=== PATIENT | female | born 1995 | race Caucasian/White ===

== ENCOUNTER 2019-12-05 16:50 | Emergency (ER) | payer OTHER, SELFPAY ==
[2019-12-05 17:03] VITALS: BP 98/60; PULSE 120; RESP 20; TEMP 37.2; O2SAT 97
--- NOTE | 2019-12-05 18:04 | ED.URI ---
HPI - URI/Sore Throat General Chief Complaint: Upper Respiratory Infection Stated Complaint: Wheezing/Cough Time Seen by Provider: 12/05/19 18:04 Source: patient and RN notes reviewed Mode of arrival: ambulatory Limitations: no limitations History of Present Illness HPI Narrative: 24 year old female who presents to [facility] care with complaints of post nasal drainage, cough, wheezing with some shortness of breath since Sunday. Patient states that she has been using her brothers nebulizer with Albuterol but she continues to have the cough and wheezing with shortness of breath with exertion. Patient denies any fevers, chills, or sweats, denies any chest pain. pressure or any palpitations. Patient has noted scattered wheezing noted on auscultation with no tachypnea or accessory muscle use noted, SAO2 97% on room air.Patient admits to daily tobacco use of 1/2ppd of cigarettes. MD elicited complaint: cough, rhinorrhea, nasal congestion and other (shortness of breath) Pertinent past history: other (tobacco use) Onset (ago): day(s) (2) Consistency: intermittent Severity: moderate Able to tolerate fluids by mouth: Yes Exacerbating factors: exertion and deep breaths Relieving factors: other (nebulizer treatments have helped) Associated symptoms: rhinorrhea, nasal congestion, cough, shortness of breath and other (wheezing) Treatments prior to arrival: other (nebulizer) Related Data Home Medications Medication Instructions Recorded Confirmed citalopram 20 mg PO DAILY 12/05/19 12/05/19 Allergies Allergy/AdvReac Type Severity Reaction Status Date / Time cat dander Allergy Intermediate Dyspnea / Verified 12/05/19 17:37 SOB Review of Systems Review of Systems: Narrative: CONSTITUTIONAL: Denies fever, chills, or sweats. EYES: Denies visual changes, redness, or discharge. ENT:Positive for rhinorrhea, congestion,mild sore throat, no otalgia. CARDIOVASCULAR: Denies chest pain, palpitations, or edema. RESPIRATORY: Positive cough or dyspnea. GASTROINTESTINAL: Denies abdominal pain, nausea, vomiting, or diarrhea. GENITOURINARY: Denies dysuria or hematuria. SKIN: Denies rash or itching. MUSCULOSKELETAL: Denies back pain, joint pain, or myalgia. NEUROLOGIC: Denies headache, numbness, or weakness. PSYCHIATRIC:Positive anxiety or depression. All systems reviewed & are unremarkable except as noted in HPI and below PMFSH Past Medical History Medical History (Updated 12/06/19 @ 20:21 by Elizabeth Rainey NP) Anxiety and depression Infection in bloodstream UTI (urinary tract infection) Surgical History Surgical History (Updated 12/06/19 @ 20:24 by Elizabeth Rainey NP) History of plastic surgery Previous section Family History Family History (Updated 12/06/19 @ 20:23 by Elizabeth Rainey NP) Other Asthma Diabetes mellitus Social History Social History (Updated 12/06/19 @ 20:23 by Elizabeth Rainey NP) Smoking packs per day: 0.5 Smoking cigarettes per day: 10.0 Years smoked: 5 Smoking pack-years: 2.50 Smoking status: Current every day smoker Tobacco type: cigarettes Alcohol intake: never Living arrangements: with family Gender identity (if verbalized by the patient): Female Comments At time of signature, agree with nursing past medical, surgical, social history. There is no relevant family history pertinent to the presenting complaint Exam Narrative: Exam Narrative: GENERAL: Well-appearing, well-nourished, and in no acute distress. HEAD: Normocephalic, atraumatic. EYES: PERRLA and EOMI. ENT: Nares red, white rhinorrhea no epistaxis. Mucous membranes moist.TM;s normal with good light reflex, throat red with no tonsil swelling or lesions. NECK: Supple.no lymphadenopathy CHEST: Scattered wheezes noted auscultation. No respiratory distress.SAO2 97% HEART: Regular rate and rhythm. No murmur heard. Normal peripheral pulses. ABDOMEN: Soft, nontender, nondistended, normal active bowel sounds.
== END 2019-12-05 18:35 | disposition home or self-care (01) ==
PROVIDERS: Emergency Provider Registered Nurse
DX: J32.9 Chronic sinusitis, unspecified (principal); J40 Bronchitis, not specified as acute or chronic; F17.210 Nicotine dependence, cigarettes, uncomplicated; F41.9 Anxiety disorder, unspecified; F32.9 Major depressive disorder, single episode, unspecified
CPT/HCPCS: 87081; 87804; 87880; 99213; G0463

== ENCOUNTER 2020-03-10 18:17 | Emergency (ER) | payer OTHER, SELFPAY ==
[2020-03-10 18:23] VITALS: BP 152/62; PULSE 108; RESP 20; TEMP 36.8; O2SAT 100
--- NOTE | 2020-03-10 18:35 | ED.GENADULT ---
HPI - General Adult General Chief complaint: Extremity Injury, Lower Stated complaint: right foot pain Time Seen by Provider: 03/10/20 18:35 Source: patient and RN notes reviewed Limitations: no limitations History of Present Illness HPI narrative: 24-year-old female presents today with complaints of right arch and dorsal-lateral foot pain and swelling for 14 days. No treatment. Martina says she can not recall any injuries but believes she could have been wearing the wrong shoes for months. Hurts to bear weight at times. No radiation of pain. No numbness, tingling, or loss of mobility. Exacerbating factor applying weight. Denies inability to bear weight. Denies discoloration. Denies suspect foreign body. LMP-4 weeks ago, denies being . Remains active. The patient reports she have not been diagnosed with COVID-19. The patient reports she is not waiting for the results of a COVID-19 lab test. The patient reports she do not have fever, chills, weakness, fatigue, or myalgia. The patient reports she do not have a new or worsening cough or shortness of breath. Denies chest pain. The patient reports she do not have any rhinorrhea, congestion, sore throat, nausea, vomiting, abdominal pain, and diarrhea. Tolerating po intake well. Denies recent traveling. Denies concerns for COVID-19 or exposures been home with limited outdoor exposure except for essential household needs, work, and return home. At this time, patient is not suspected of having COVID-19. Some parts of this dictation were generated by voice recognition software and may contain typographical and/or grammatical inaccuracies. Related Data Home Medications Medication Instructions Recorded Confirmed No Home Medications 03/10/20 03/10/20 Allergies Allergy/AdvReac Type Severity Reaction Status Date / Time cat dander Allergy Intermediate Dyspnea / Verified 03/10/20 18:32 SOB Review of Systems Review of Systems: Narrative: CONSTITUTIONAL: Denies fever, chills, sweats. EYES: Denies visual changes, redness, discharge. ENT: Denies rhinorrhea, congestion, sore throat, otalgia. CARDIOVASCULAR: Denies chest pain, palpitations, edema. RESPIRATORY: Denies dyspnea, wheezing, cough. GASTROINTESTINAL: Denies abdominal pain, nausea, vomiting, diarrhea. GENITOURINARY: Denies dysuria, hematuria, abnormal discharge. SKIN: Denies rash or itching. MUSCULOSKELETAL: Denies acute back pain or myalgia. Complains of right arch and dorsal-lateral foot pain and swelling. NEUROLOGIC: Denies numbness or focal weakness. PSYCHIATRIC: Denies anxiety or depression. All other systems reviewed are negative, except as documented in HPI and below. [facility] Past Medical History Medical History (Updated 03/10/20 @ 19:13 by CAMERON Guzman) Anxiety and depression Infection in bloodstream UTI (urinary tract infection) Surgical History Surgical History (Updated 03/10/20 @ 19:13 by CAMERON Guzman) History of cosmetic plastic surgery facial due to dog bit History of plastic surgery Previous section Family History Family History Other Asthma Diabetes mellitus Social History Social History (Updated 03/10/20 @ 19:14 by CAMERON Guzman) Smoking packs per day: 0.5 Smoking cigarettes per day: 10.0 Years smoked: 5 Smoking pack-years: 2.50 Smoking status: Current every day smoker Tobacco type: cigarettes Alcohol intake: current Alcohol use details: occasional Substance use: never Living arrangements: with family Occupation/Education: occupation Gender identity (if verbalized by the patient): Female Comments At time of signature, agree with nurse past medical, surgical, social, and family history. There is no relevant family history pertinent to the presenting complaint. Exam Narrative: Exam Narrative: GENERAL: This is a well-nourished, well-dev
== END 2020-03-10 18:58 | disposition home or self-care (01) ==
PROVIDERS: Emergency Provider Nurse Practitioner Family; PCP Internal Medicine
DX: M76.71 Peroneal tendinitis, right leg (principal); F17.210 Nicotine dependence, cigarettes, uncomplicated; Z87.440 Personal history of urinary (tract) infections; R03.0 Elevated blood-pressure reading, without diagnosis of hypertension
CPT/HCPCS: 99211; G0463

== ENCOUNTER 2020-03-18 16:49 | Emergency (ER) | payer OTHER, SELFPAY ==
[2020-03-18 16:59] VITALS: BP 117/61; PULSE 102; RESP 20; TEMP 36.9; O2SAT 100
--- NOTE | 2020-03-18 17:26 | ED.EAR ---
HPI - Ear Problem General Chief complaint: Ear Stated complaint: Ear pain Time Seen by Provider: 03/18/20 17:26 Source: patient Mode of arrival: ambulatory Limitations: no limitations History of Present Illness HPI Narrative: Martina Shin is a 24 yo female with no PMH who came to express care with right ear pain after swimming and full trip over the last weekend. Feels like water still in ear; painful outside, tender to touch Related Data Allergies Allergy/AdvReac Type Severity Reaction Status Date / Time cat dander Allergy Intermediate Dyspnea / Verified 03/18/20 17:15 SOB Review of Systems Review of Systems: Narrative: CONSTITUTIONAL: Denies fever, chills, sweats. EYES: Denies visual changes, redness, discharge. ENT: Denies rhinorrhea, congestion, sore throat, has R otalgia. CARDIOVASCULAR: Denies chest pain, palpitations, edema. RESPIRATORY: Denies dyspnea, wheezing, cough GASTROINTESTINAL: Denies abdominal pain, nausea, vomiting, diarrhea. GENITOURINARY: Denies dysuria, hematuria, abnormal discharge SKIN: Denies rash or itching. NEUROLOGIC: Denies numbness, or focal weakness. PSYCHIATRIC: Denies anxiety or depression. PMFSH Past Medical History Medical History Anxiety and depression Infection in bloodstream UTI (urinary tract infection) Surgical History Surgical History History of cosmetic plastic surgery facial due to dog bit History of plastic surgery Previous section Family History Family History Other Asthma Diabetes mellitus Social History Social History Smoking packs per day: 0.5 Smoking cigarettes per day: 10.0 Years smoked: 5 Smoking pack-years: 2.50 Smoking status: Current every day smoker Tobacco type: cigarettes Alcohol intake: current Substance use: never Gender identity (if verbalized by the patient): Female Comments At time of signature, I agree with nursing past medical, surgical, social and family history. There is no relevant family history pertinent to the presenting complaint. Exam Narrative: Exam Narrative: GENERAL: This is a well-nourished, well-developed patient, in mild distress. HEAD: normocephalic, atraumatic. EYES: Sclera clear/white. Vision is grossly intact. EARS: External ears normal, auditory canals clear on L , erythema and swelling of R canal without drainage, TMs normal without perforation. Hearing grossly intact. NOSE: External nose normal without nasal discharge, nares without redness, no rhinorrhea. THROAT: Mucous membranes moist, NECK: Neck supple, CARDIOVASCULAR: Regular rate and rhythm without murmurs, gallops, or rubs. RESPIRATORY: Clear to auscultation. Breath sounds equal bilaterally. No wheezes, rales, or rhonchi. GASTROINTESTINAL: Abdomen soft, , SKIN: warm, intact with no suspicious lesions or rash, good texture and turgor. NEURO: awake, alert, and oriented to person, place and time. There were no obvious focal neurologic abnormalities. Steady gait EXTREMITIES: Normal range of motion. BACK: Nontender without deformity Course Course Emergency Course: started on ear drops- discussed use of ear drops, stop use of swimmers ear Vital Signs Vital signs: Vital Signs Temperature 98.4 F 03/18/20 16:59 Pulse Rate 102 H 03/18/20 16:59 Respiratory Rate 03/18/20 16:59 Blood Pressure 117/61 03/18/20 16:59 Pulse Oximetry 100 03/18/20 16:59 Temperature 98.4 F 03/18/20 16:59 Pulse Rate 102 H 03/18/20 16:59 Respiratory Rate 03/18/20 16:59 Blood Pressure 117/61 03/18/20 16:59 Pulse Oximetry 100 03/18/20 16:59 Medical Decision Making Differential Diagnosis Differential Diagnosis: Otitis media versus otitis externa versus ear injury Vital Signs Vital Signs:
== END 2020-03-18 17:38 | disposition home or self-care (01) ==
PROVIDERS: Emergency Provider Nurse Practitioner
DX: H60.311 Diffuse otitis externa, right ear (principal); F17.210 Nicotine dependence, cigarettes, uncomplicated
CPT/HCPCS: 99213; G0463

== ENCOUNTER 2022-06-27 13:18 | Emergency (ER) | payer OTHER, SELFPAY ==
[2022-06-27 13:22] VITALS: BP 123/70; PULSE 93; RESP 20; TEMP 36.9; O2SAT 98
--- NOTE | 2022-06-27 13:37 | ED.FEMALEGU ---
HPI - Female Genitourinary General Chief complaint: Urogenital-Female Stated complaint: uti Time Seen by Provider: 06/27/22 13:35 Source: patient and RN notes reviewed Mode of arrival: ambulatory Limitations: no limitations History of Present Illness HPI Narrative: 26-year-old female presents with concern for low back pain, foul-smelling and dark-colored urine. She reports symptoms started 1 week ago. She reports she gets urinary tract infection if she drinks soda. She denies body aches, chills, sweats, fever, dysuria, frequency, urgency. She denies abdominal pain, nausea, vomiting MD elicited complaint: UTI Related Data Home Medications Medication Instructions Recorded Confirmed ibuprofen 600 mg tablet 600 mg PO DAILY 06/27/22 06/27/22 phentermine 37.5 mg tablet 37.5 mg PO DAILY 06/27/22 06/27/22 Allergies Allergy/AdvReac Type Severity Reaction Status Date / Time cat dander Allergy Intermediate Dyspnea / Verified 06/27/22 13:35 SOB Review of Systems Review of Systems: CONSTITUTIONAL: Denies malaise, chills, sweats, or fever. CARDIOVASCULAR: Denies chest pain, palpitations, or edema. RESPIRATORY: Denies cough or dyspnea. GASTROINTESTINAL: Denies abdominal pain, nausea, vomiting, diarrhea GENITOURINARY: Reports dysuria, frequency, urgency, suprapubic pressure. Denies flank pain or hematuria. SKIN: Denies rash or itching. MUSCULOSKELETAL: Denies back pain or myalgia. All systems reviewed & are unremarkable except as noted in HPI and below PMFSH Past Medical History Medical History (Updated 06/27/22 @ 13:43 by Theresa Bush NP) Anxiety and depression Infection in bloodstream UTI (urinary tract infection) Surgical History Surgical History History of cosmetic plastic surgery facial due to dog bit History of plastic surgery Previous section Family History Family History Other Asthma Diabetes mellitus Social History Social History Smoking packs per day: 0.5 Smoking cigarettes per day: 10.0 Years smoked: 5 Smoking pack-years: 2.50 Smoking status: Current every day smoker Tobacco type: cigarettes Alcohol intake: current Alcohol use details: occasional Substance use: never Gender identity (if verbalized by the patient): Female Comments At time of signature, agree with nursing past medical, surgical, social and family history. There is no relevant family history pertinent to the presenting complaint Exam Narrative: GENERAL: Well-appearing, well-nourished, and in no acute distress. HEAD: Normocephalic. EYES: PERRLA, conjunctivae clear. NECK: Supple. No lymphadenopathy CHEST: Clear to auscultation. No respiratory distress. HEART: Regular rate and rhythm. ABDOMEN: Soft, nontender upon palpation, nondistended, normal active bowel sounds, no palpable or pulsatile masses, no guarding. Mild left CVA tenderness SKIN: Warm, dry, no rash. NEURO: Alert and oriented x3. PSYCH: Normal mood and affect Course Course Emergency Course: Patient is aware of diagnosis, understands and agrees to treatment plan. Anticipatory guidance given. Patient agrees to follow-up as directed and is aware of reasons to seek care at the emergency department. Portions of this record may have been created with voice recognition software Level of Care: Express Care Visit Vital Signs Vital signs: Vital Signs Temperature 98.4 F 06/27/22 13:22 Pulse Rate 93 06/27/22 13:22 Respiratory Rate 20 06/27/22 13:22 Blood Pressure 123/70 06/27/22 13:22 Pulse Oximetry 98 06/27/22 13:22 Oxygen Delivery Room Air 06/27/22 13:22 Temperature 98.4 F 06/27/22 13:22 Pulse Rate 93 06/27/22 13:22 Respiratory Rate 20 06/27/22 13:22 Blood Pressure 123/70 06/27/22 13:22 Pulse Oximetry 98 06/27/22
== END 2022-06-27 13:44 | disposition home or self-care (01) ==
PROVIDERS: Emergency Provider Nurse Practitioner
DX: N39.0 Urinary tract infection, site not specified (principal); F17.210 Nicotine dependence, cigarettes, uncomplicated
CPT/HCPCS: 81003; 87077; 87086; 87186; 99213; G0463

== ENCOUNTER 2022-08-06 09:01 | Emergency (ER) | payer OTHER, SELFPAY ==
[2022-08-06 09:24] VITALS: BP 127/73; PULSE 102; RESP 20; TEMP 37; O2SAT 99
--- NOTE | 2022-08-06 10:28 | ED.URI ---
HPI - URI/Sore Throat General Chief Complaint: Upper Respiratory Infection Stated Complaint: fever cough Source: patient Mode of arrival: ambulatory Limitations: no limitations History of Present Illness HPI Narrative: 26-year-old female presents to [facility] with complaints of sore throat, cough, congestion, body aches and chills since last night. Patient has been taking [id number] Tylenol as needed. Patient reports that she is concerned about influenza. Patient denies shortness of breath, wheezing, nausea, vomiting or diarrhea. MD elicited complaint: cough and nasal congestion Onset (ago): day(s) (1) Severity: mild Able to tolerate fluids by mouth: Yes Treatments prior to arrival: none Related Data Home Medications Medication Instructions Recorded Confirmed phentermine 37.5 mg tablet 37.5 mg PO DAILY 06/27/22 08/06/22 levonorgestrel 20 mcg/24 hours (8 1 device intrauterine ONCE 08/06/22 08/06/22 yrs) 52 mg intrauterine device (Mirena) Allergies Allergy/AdvReac Type Severity Reaction Status Date / Time cat dander Allergy Intermediate Dyspnea / Verified 08/06/22 09:51 SOB Review of Systems Constitutional: Constitutional: Reports chills, Reports fatigue, Reports fever(s) and Denies weakness ENT: Denies dizziness, Reports nasal congestion and Reports sore throat Cardiovascular: Cardiovascular: Denies chest pain Respiratory: Respiratory: Denies chest congestion, Reports cough, Denies dyspnea and Denies wheezing Gastrointestinal: Gastrointestinal: Denies diarrhea, Denies nausea and Denies vomiting Integumentary/Breasts: Skin/Breast: Denies rash Allergic/Immunologic: Allergic/Immunologic: Denies lip swelling, Denies throat swelling, Denies tongue swelling and Denies wheezing [facility] Past Medical History Medical History (Updated 08/06/22 @ 10:37 by Kendal James APRN) Anxiety and depression Infection in bloodstream UTI (urinary tract infection) Surgical History Surgical History History of cosmetic plastic surgery facial due to dog bit History of plastic surgery Previous section Family History Family History Other Asthma Diabetes mellitus Social History Social History Smoking packs per day: 0.5 Smoking cigarettes per day: 10.0 Years smoked: 5 Smoking pack-years: 2.50 Smoking status: Current every day smoker Tobacco type: cigarettes Alcohol intake: current Alcohol use details: occasional Substance use: never Gender identity (if verbalized by the patient): Female Comments At time of signature, I agree with nursing past medical, surgical, social and family history. There is no relevant family history pertinent to the presenting complaint. Exam Const: General: healthy appearing and no acute distress Nutritional Appearance: well nourished Orientation/consciousness: patient oriented x3 Limitations: no limitations HENMT: Head: normal to inspection Ears: external ears normal and EAC's normal Face/Nose/Sinus: Normal external nose present Face and sinus: normal facial exam and sinuses nontender Mouth: Yes Normal oral and palatal mucosa present and Yes moist mucous membranes Teeth and gingiva: dentition normal Throat: posterior oropharynx normal and uvula midline Eyes: Conjunctivae: conjunctivae normal Neck: Neck: normal visual inspection Resp: Effort & Inspection: normal respiratory effort and not labored Auscultation: clear to auscultation bilaterally, no crackles and no rales Cardio: Rate: regular rate Rhythm: regular rhythm Heart sounds: no murmurs Skin: General skin exam: normal color Rashes: no rashes Wounds: no wounds Neuro: General: patient oriented x3 Speech: normal speech Gait exam (Neuro): Normal gait present Psych: Affect: normal affect Attitude: janene
== END 2022-08-06 10:40 | disposition home or self-care (01) ==
PROVIDERS: Emergency Provider Nurse Practitioner Family; PCP Pediatrics
DX: J06.9 Acute upper respiratory infection, unspecified (principal); F17.210 Nicotine dependence, cigarettes, uncomplicated
CPT/HCPCS: 87804; 99213; G0463

== ENCOUNTER 2023-06-18 18:29 | Emergency (ER) | payer OTHER, SELFPAY ==
--- NOTE | ~2023-06-18 | XR_ITS ---
EXAMINATION: XR chest 2V Exam Date/Time: 06/18/2023 19:29 CDT HISTORY: SHORTNESS OF BREATH/FEVER/COUGH Comparison: None. RESULT: Lines, tubes, and devices: None. Lungs and pleura: Clear. Cardiomediastinal silhouette: Normal. Other: No acute osseous or upper abdominal finding. IMPRESSION: No acute cardiopulmonary process. Reviewed, dictated and finalized at location K.
--- NOTE | 2023-06-18 18:33 | ED.URI ---
HPI - URI/Sore Throat General Chief Complaint: Upper Respiratory Infection Stated Complaint: Cough;Body aches;Nausea Time Seen by Provider: 06/18/23 18:34 Source: patient Mode of arrival: ambulatory Limitations: no limitations History of Present Illness HPI Narrative: Stormy is a 27-year-old female patient presenting to the clinic today with complaints of cough, shortness of breath, body aches, and nausea x3 weeks. She reports she has also has felt feverish and chills. Has a productive cough but does not know what color the phlegm has been. Father is also being seen in the clinic today for similar symptoms. MD elicited complaint: cough, nasal congestion and other (Body aches and nausea) Related Data Allergies Allergy/AdvReac Type Severity Reaction Status Date / Time cat dander Allergy Intermediate Dyspnea / Verified 06/18/23 19:15 SOB Review of Systems Review of Systems: Pertinent positives per HPI. Patient denies any rash, headache, visual changes, dizziness, chest pain, palpitations, diarrhea, constipation, abdominal pain, or any urinary issues. [facility] Past Medical History Medical History (Updated 06/18/23 @ 19:44 by Jun Alonso APRN) Anxiety and depression Infection in bloodstream UTI (urinary tract infection) Surgical History Surgical History History of cosmetic plastic surgery facial due to dog bit History of plastic surgery Previous section Family History Family History Other Asthma Diabetes mellitus Social History Social History Smoking packs per day: 0.5 Smoking cigarettes per day: 10.0 Years smoked: 5 Smoking pack-years: 2.50 Smoking status: Current every day smoker Tobacco type: cigarettes Alcohol intake: current Alcohol use details: occasional Substance use: never Living arrangements: with family Occupation/Education: occupation Gender identity (if verbalized by the patient): Female Comments At the time of my signature, I reviewed and agree with the nursing past medical, surgical, social, and family history. There is no relevant family history pertinent to the patient complaint. Exam Narrative: General: Well-developed, obese, in no apparent distress Head: Normocephalic, atraumatic Eyes: Pupils equally round and reactive to light bilaterally, EOM intact, sclera and conjunctive clear, no discharge, lids normal Ears: TMs intact and congested, ear canals clear, no drainage, grossly hearing normal. Nose: Nares patent, clear nasal discharge, no inflammation, no sinus tenderness. Mouth: Oral pharynx without lesions or masses, good dentition, MMM. Postnasal drip Neck: Supple, trachea midline, no enlargement of anterior or posterior cervical nodes, no thyroid masses or goiter palpable. Cardio: Regular rate and rhythm, s1 and s2 normal, no murmur appreciated. Resp: Expiratory wheezing in the right upper and middle lobe, no rhonchi, rales, or rubs Course Course Emergency Course: Portions of this record may have been created with voice recognition software. Level of Care: Express Care Visit Vital Signs Vital signs: Vital Signs Temperature 36.7 C 06/18/23 19:09 Pulse Rate 88 06/18/23 19:09 Respiratory Rate 16 06/18/23 19:09 Blood Pressure 121/65 06/18/23 19:09 Pulse Oximetry 100 06/18/23 19:09 Temperature 36.7 C 06/18/23 19:09 Pulse Rate 88 06/18/23 19:09 Respiratory Rate 16 06/18/23 19:09 Blood Pressure 121/65 06/18/23 19:09 Pulse Oximetry 100 06/18/23 19:09 Vital signs reviewed MDM - URI/Sore Throat MDM Narrative Medical decision making narrative: At the time of visit patient is resting comfortably on the exam table. Chest x-ray was performed and was negative for any sign of pneumonia. I suspect patient h
[2023-06-18 19:09] VITALS: BP 121/65; PULSE 88; RESP 16; TEMP 36.7; O2SAT 100
== END 2023-06-18 19:48 | disposition home or self-care (01) ==
PROVIDERS: Emergency Provider Nurse Practitioner Family
DX: J40 Bronchitis, not specified as acute or chronic (principal); B34.9 Viral infection, unspecified; F17.210 Nicotine dependence, cigarettes, uncomplicated
CPT/HCPCS: 71046; 99213; G0463

== ENCOUNTER 2023-07-01 08:52 | Emergency (ER) | payer OTHER, SELFPAY ==
[2023-07-01 09:00] VITALS: BP 104/69; PULSE 97; RESP 20; TEMP 36.7; O2SAT 97
--- NOTE | 2023-07-01 09:15 | ED.URI ---
HPI - URI/Sore Throat General Chief Complaint: Urogenital-Female Stated Complaint: cough/congestion/uti Time Seen by Provider: 07/01/23 09:16 Source: patient, RN notes reviewed and old records reviewed Mode of arrival: ambulatory Limitations: no limitations History of Present Illness HPI Narrative: 27 year old female who presents to [facility] care with complaints of being treated for Bronchitis on the 9th of this month with Tessalon Perles, steroids and Albuterol inhaler with continued cough noted which is productive and feels some dyspnea with cough. Patient reports that she has nasal drainage, sore throat, has been using the inhaler, completed the steroids and has finished the Tessalon Perles. Patient reports that she has not noted any fevers, chills or body aches. Patient is daily tobacco user. Patient also reports concern for UTI with episodes of incontinency, urinary frequency and urgency, denies any pain or burning with urination or any flank pain. MD elicited complaint: cough, sore throat and other (urinary incontinency) Pertinent past history: other (recent Bronchitis) Onset (ago): day(s) (13) Severity: moderate Able to tolerate fluids by mouth: Yes Exacerbating factors: exertion Treatments prior to arrival: other (inhaler, steroids, Tessalon Perles) Related Data Allergies Allergy/AdvReac Type Severity Reaction Status Date / Time cat dander Allergy Intermediate Dyspnea / Verified 07/01/23 09:16 SOB Review of Systems Review of Systems: CONSTITUTIONAL: Denies malaise, chills, sweats, or fever. EYES: Denies visual changes, redness, or discharge. ENT: Reports rhinorrhea, congestion,no sinus pain, no otalgia positive for sore throat. CARDIOVASCULAR: Denies chest pain, palpitations, or edema. RESPIRATORY: Reports cough.? Reports dyspnea with cough. GASTROINTESTINAL: Denies abdominal pain, nausea, vomiting, diarrhea, states urinary incontinency SKIN: Denies rash or itching. MUSCULOSKELETAL: Denies myalgia. NEUROLOGIC: Denies headache. All systems reviewed & are unremarkable except as noted in HPI and below PMFSH Past Medical History Medical History (Updated 07/02/23 @ 00:00 by Kathe Chapman) Anxiety and depression Infection in bloodstream UTI (urinary tract infection) Surgical History Surgical History History of cosmetic plastic surgery facial due to dog bit History of plastic surgery Previous section Family History Family History Other Asthma Diabetes mellitus Social History Social History Smoking packs per day: 0.5 Smoking cigarettes per day: 10.0 Years smoked: 5 Smoking pack-years: 2.50 Smoking status: Current every day smoker Tobacco type: cigarettes Alcohol intake: current Alcohol use details: occasional Substance use: never Living arrangements: with family Occupation/Education: occupation Gender identity (if verbalized by the patient): Female Comments At time of signature, agree with nursing past medical, surgical, social and family history. There is no relevant family history pertinent to the presenting complaint Exam Narrative: GENERAL: Well-appearing, well-nourished, and in no acute distress. HEAD: Normocephalic EYES: PERRLA, conjunctivae clear ENT: Nares clear, turbinates edematous and erythematous, clear discharge. Mucous membranes moist. TM pearly lopez with dull light reflex bilaterally; no tragal tenderness. Oropharynx erythematous without lesions. Tonsils not enlarged and without exudate, no drooling, no hoarseness, no trismus, uvula midline.post nasal drainage NECK: Supple. No lymphadenopathy CHEST: Clear to auscultation, breath sounds equal. No wheezing, rhonchi, rales, or stridor. No respiratory distress, speaks in full sentences.cough present,SAO2 97% on ro
== END 2023-07-01 10:22 | disposition home or self-care (01) ==
PROVIDERS: Emergency Provider Registered Nurse
DX: J06.9 Acute upper respiratory infection, unspecified (principal); R32 Unspecified urinary incontinence; F17.210 Nicotine dependence, cigarettes, uncomplicated
CPT/HCPCS: 81003; 87081; 87880; 99213; G0463

== ENCOUNTER 2023-12-18 08:53 | Emergency (ER) | payer OTHER, SELFPAY ==
--- NOTE | ~2023-12-18 | XR_ITS ---
EXAMINATION: XR hip RT 2V w AP pelvis DATE: 12/18/2023 09:36 INDICATION: Right hip pain post fall TECHNIQUE: Anteroposterior view of the pelvis and anteroposterior and frog-leg lateral views of the r ight hip were obtained. COMPARISON: None. FINDINGS: Alignment is normal. No fracture. Joint spaces are normal. T-shaped IUD in expected position projecti ng over the central pelvis. Soft tissues are unremarkable. IMPRESSION: 1. IUD in expected position. Otherwise unremarkable study with no osseous abnormality. Reviewed, dictated and finalized at location B. IMPRESSION: 1. IUD in expected position. Otherwise unremarkable study with no osseous abnor mality.
[2023-12-18 09:00] VITALS: BP 131/88; PULSE 83; RESP 18; TEMP 36.6; O2SAT 100
--- NOTE | 2023-12-18 09:32 | ED.GENADULT ---
HPI - General Adult General Chief complaint: Back Pain/Injury Stated complaint: Back pain Source: patient Mode of arrival: ambulatory Limitations: no limitations History of Present Illness HPI narrative: Patient presents for evaluation of low back pain for the last 3-4 days. She indicates she has been moving things at her residence and has also been assisting family moving some items as well. Several days she was assisting a family member move a recliner when she fell forward, landing on her hands and knees. She did not hit her head or back. She is not sure whether that incident or another movement caused her current pain. Pain is variable, currently 8/10 in severity, worse with certain movements. No radicular component. No paresthesias. She tried taking tylenol without considerable improvement thereafter. Related Data Home Medications Medication Instructions Recorded Confirmed levonorgestrel 21 mcg/24 hours (8 1 device intrauterine ONCE 12/18/23 12/18/23 yrs) 52 mg intrauterine device (Mirena) Allergies Allergy/AdvReac Type Severity Reaction Status Date / Time cat dander Allergy Intermediate Dyspnea / Verified 12/18/23 09:13 SOB Review of Systems Review of Systems: CONSTITUTIONAL: Denies fever, chills, or sweats. EYES: Denies visual changes, redness, or discharge. ENT: Denies rhinorrhea, congestion, sore throat, or otalgia. CARDIOVASCULAR: Denies chest pain, palpitations, or edema. RESPIRATORY: Denies cough or dyspnea. GASTROINTESTINAL: Denies abdominal pain, nausea, vomiting, or diarrhea. GENITOURINARY: Denies dysuria or hematuria. SKIN: Denies rash or itching. MUSCULOSKELETAL: Reports right lower back pain. Denies joint pain, or myalgia. NEUROLOGIC: Denies headache, numbness, dizziness, or weakness. PSYCHIATRIC: Denies anxiety or depression. [facility] Past Medical History Medical History (Updated 12/18/23 @ 09:54 by Hernán Benitez, CAMERON, NILDA) Anxiety and depression Infection in bloodstream UTI (urinary tract infection) Surgical History Surgical History History of cosmetic plastic surgery facial due to dog bit History of plastic surgery Previous section Family History Family History Other Asthma Diabetes mellitus Social History Social History Smoking packs per day: 0.5 Smoking cigarettes per day: 10.0 Years smoked: 5 Smoking pack-years: 2.50 Smoking status: Current every day smoker Tobacco type: cigarettes Alcohol intake: current Alcohol use details: occasional Substance use: never Living arrangements: with family Occupation/Education: occupation Gender identity (if verbalized by the patient): Female Exam Narrative: GENERAL: Well-appearing, well-nourished, and in no acute distress. HEAD: Normocephalic, atraumatic. EYES: PERRLA and EOMI. ENT: Nares clear, no rhinorrhea or epistaxis. Mucous membranes moist. Oropharynx without tonsillar hypertrophy exudate or other lesions. Bilateral TMs pearly lopez nonbulging NECK: Supple. No adenopathy or masses. No carotid bruits or JVD CHEST: Clear to auscultation. No respiratory distress. No wheezes rales or rhonchi HEART: Regular rate and rhythm. No murmur heard. Normal peripheral pulses. ABDOMEN: Soft, nontender, nondistended, normal active bowel sounds. EXTREMITIES: Tenderness over right lateral hip. Normal range of motion. No edema. BACK: Tenderness over right posterior pelvis. SKIN: Warm, dry, no rash. NEURO: No focal deficits. Alert and oriented x3. PSYCH: Normal mood and affect. Course Course Emergency Course: This is a 28-year-old female who presented for evaluation of right lower back pain. X-ray of pelvis and hips were obtain as patient was tender in those areas. X-ray negative. Exam is consistent
== END 2023-12-18 09:55 | disposition home or self-care (01) ==
PROVIDERS: Emergency Provider Nurse Practitioner
DX: S39.012A Strain of muscle, fascia and tendon of lower back, initial encounter (principal); X58.XXXA Exposure to other specified factors, initial encounter; F17.210 Nicotine dependence, cigarettes, uncomplicated
CPT/HCPCS: 73502; 99213; G0463

== ENCOUNTER 2024-10-17 10:34 | Emergency (ER) | payer OTHER, SELFPAY ==
--- NOTE | ~2024-10-17 | CT_ITS ---
CLINICAL INDICATION: Right lower quadrant pain COMPARISON: None. TECHNIQUE: Multiple contiguous axial images of the abdomen and pelvis were performed following the ad ministration of with 100 mL Omnipaque-350 intravenous contrast The dose-length product (DLP) was 1592.76 mGy-cm. Automated exposure control and iterative reconstruction technique were employed. FINDINGS/OBSERVATIONS: Visualized lower thorax: The bilateral lung bases are clear. The heart is of normal size, without pericardial effusion. Small hiatal hernia is present. Liver: The liver enhances homogeneously and is not enlarged measuring 18 cm in longitudinal dimension. Gallbladder and biliary system: The gallbladder is only minimally distended, and otherwise unremarkable. Pancreas: The pancreas enhances homogeneously without ductal dilatation. Spleen: The spleen enhances homogeneously and is not enlarged measuring 8 cm in longitudinal dimension. Kidneys: The bilateral kidneys enhance symmetrically without hydronephrosis or renal calculi. Adrenal glands: Unremarkable. Gastrointestinal tract: Trace fecal stasis is present. Appendix: The air-filled appendix is of normal caliber (axial series, images 122 - 148) Vasculature: Unremarkable. Lymph nodes: No pathologically enlarged or morphologically suspicious lymph nodes within the retroperitoneum or at the root of the mesentery. Pelvic structures: The bladder is distended, and otherwise unremarkable. The uterus is retroverted and retroflexed. An intrauterine device is identified in an oblique position within the uterus. Body wall and musculoskeletal: Small fat-containing umbilical hernia. No significant degenerative disease within the lower thoracic or lumbosacral spine. Small bone island to the right of midline within the posterior of L2. IMPRESSION: Normal appendix. Oblique positioning of the intrauterine device. Reviewed, dictated and finalized at location A. RAL LOT ATTENDANT
[2024-10-17 10:36] VITALS: BP 148/104; PULSE 111; RESP 14; TEMP 36.4; O2SAT 100
--- OUTSIDE RECORDS SUMMARY | 2024-10-17 11:17 | XMS_ITS | Continuity of Care Document ---
Author Organization [facility] Address [address] [place] [place] [address] [place] [address] Phone Care Team Providers Care Rn Integrated Name Role Phone Kar Rubin MD Unavailable Unavailable Advance Directives Directive Yes / No Effective Date File Name No Information Encounters Encounter Description Practice Location Reason(s) For Visit Diagnoses Date Provider Providers Copied on Encounter [facility], [address] [place], [place], [id number], [place] tel:[phone] [facility] No Information Scottie Lakhani. [address] [place], [place], [id number], [place]. tel:[phone] Family History Family Member Type Diagnosis Age At Onset No Information Payers Payer name Insurance type Covered alliance party ID Authoriza tion(s) No Information Social [...]
[2024-10-17 14:27] VITALS: BP 91/79; PULSE 78; RESP 12; O2SAT 100
--- NOTE | 2024-10-17 14:43 | ED.ABDPAIN ---
HPI - Abdominal Pain General Chief Complaint: Abdominal Pain Stated Complaint: abd pain Time Seen by Provider: 10/17/24 14:14 History of Present Illness HPI narrative: 28-year-old otherwise healthy female presenting to the emergency department for 1 week of right-sided lower quadrant abdominal pain associated with nausea without vomiting. Intermittent fever and chills. She states recent she had an upper respiratory infection and similar symptoms that resolved spontaneously. She has an IUD that is approximately 2 to 3 years old. Denies any chance of , no vaginal discharge urinary symptoms. No back pain, chest pain shortness a breath. She was otherwise in her normal state of health, took Tylenol at home without any improvement. No abdominal history besides a for her previous . Related Data Home Medications ?Medication ?Instructions ?Recorded ?Confirmed ?Last Taken ?Type levonorgestrel (Mirena) 1 device intrauterine ONCE 12/18/23 12/18/23 Unknown History Allergies Allergy/AdvReac Type Severity Reaction Status Date / Time cat dander Allergy Intermediate Dyspnea / Verified 12/18/23 09:13 SOB Review of Systems Review of Systems: As reviewed above in HPI [facility] Past Medical History Medical History (Updated 10/17/24 @ 17:38 by Jeramy Hernandez MD) Infection in bloodstream Anxiety and depression UTI (urinary tract infection) Surgical History Surgical History History of cosmetic plastic surgery facial due to dog bit History of plastic surgery Previous section Family History Family History Other Asthma Diabetes mellitus Social History Social History Smoking packs per day: 0.5 Smoking cigarettes per day: 10.0 Years smoked: 5 Smoking pack-years: 2.50 Smoking status: Current every day smoker Tobacco type: cigarettes Alcohol intake: current Alcohol use details: occasional Substance use: never Living arrangements: with family Occupation/Education: occupation Gender identity (if verbalized by the patient): Female Exam Narrative: GENERAL: [Well-appearing, well-nourished, and in no acute distress.] HEAD: [Normocephalic, atraumatic.] EYES: [PERRLA and EOMI.] ENT: Nares clear, no rhinorrhea or epistaxis. Mucous membranes moist. NECK: Supple. CHEST: [Clear to auscultation. No respiratory distress.] HEART: [Regular rate and rhythm]. No murmur heard. [Normal peripheral pulses.] ABDOMEN: [Soft, nondistended], [ tender to palpation the right lower quadrant without any peritonitis, negative Gomez sign, negative psoas sign Rovsing sign.], [No rigidity or guarding] EXTREMITIES: Normal range of motion. [No edema.] SKIN: Warm, dry, no rash. NEURO: [No focal deficits]. Alert and oriented [x3.] PSYCH: [Normal mood and affect.] Course Vital Signs Vital signs: Vital Signs Temperature 36.4 C 10/17/24 10:36 Pulse Rate 111 H 10/17/24 10:36 Respiratory Rate 14 10/17/24 10:36 Blood Pressure 148/104 H 10/17/24 10:36 Pulse Oximetry 100 10/17/24 10:36 Oxygen Delivery Room Air 10/17/24 10:36 Temperature 36.4 C 10/17/24 10:36 Pulse Rate 71 10/17/24 17:15 Respiratory Rate 14 10/17/24 17:15 Blood Pressure 119/71 10/17/24 17:15 Pulse Oximetry 100 10/17/24 17:15 Oxygen Delivery Room Air 10/17/24 10:36 MDM - Abdominal Pain MDM Narrative Medical decision making narrative: 28-year-old female presenting with right lower quadrant pain for about 1 week associated with nausea without vomiting. Denies any vaginal bleeding or general urinary symptoms otherwise. Has a IUD in place, does not have regular. Secondary to this. She is tender to the right lower quadrant without any rebound or guarding. She is slightly tachycardic with a pulse 111 but afebrile, saturating well on room air. She is overall comfortable and not ill-appearing. Rates her pain 4-10, took Tylenol at home but still feels nauseous. She is given Toradol and Zofran here as well as a fluid bolus. A a CBC, CMP, urinalysis and urine test was ordered as well as a CT scan to rule out any kind of infectious processes appendicitis, gastroenteritis or colitis, possibility of having ovarian pathology although less likely, test was obtained. CT scan shows a normal appearing appendix, oblique position of the IUD but still in place. Distended bladder otherwise unremarkable, normal renal function, normal hepatic function, no leukocytosis or anemia. Urinary tract infection is seen on her urinalysis. She was hydrated with improvement her pulse. She was started on Keflex and sent home with 7 day prescription for this as well as Bentyl for abdominal discomfort. She was given Zofran as needed. Patient is safe and comfortable with discharge at this time with regular outpatient follow-up and return precautions. Medical Records Attestation: I reviewed the patient's medical records. Lab Data Attestation: I reviewed the patient's lab results. 10/17/24 15:01 10/17/24 15:01 Labs: Lab Results 10/17/24 10/17/24 10/17/24 Range/Units 15:01 15:44 16:08 WBC 4.8 (4.5-10.0) K/mm3 RBC 5.29 (4.2-5.4) M/mm3 Hgb 14.9 (12.0-15.0) g/dL Hct 45.9 (37.0-47.0) % MCV 86.8 (80-100) fl MCH 28.2 (26-34) pg MCHC 32.5 (32-36) g/dl RDW 13.9 (11.5-14.5) % Plt Count 264 (150-375) k/mm3 MPV 8.9 (7.4-10.4) fl Immature Gran % (Auto) 0.4 (0-0.5) % Neut % (Auto) 57.4 (45.5-73.1) % Lymph % (Auto) 31.7 (18.3-44.2) % [place] % (Auto) 8.4 (2.6-8.5) % Eos % (Auto) 1.5 (0-4.4) % Baso % (Auto) 0.6 (0.2-1.2) % Lymph # (Auto) 1.51 (0.9-3.2) K/mm3 [place] # (Auto) 0.4 (0.1-0.6) K/mm3 Eos # (Auto) 0.1 (0-0.3) K/mm3 Baso # (Auto) 0.0 (0.0-0.1) K/mm3 Abs Immat Gran (auto) 0.02 (0.00-0.031) K/mm3 Absolute Neuts (auto) 2.7 (1.3-6.7) K/mm3 Absolute Nucleated RBC 0.000 (0.0-0.012) K/mm3 Nucleated RBC % 0.0 (0.0-0.2) % Sodium 137 (137-145) mmol/L Potassium 4.1 (3.4-5.0) mmol/L Chloride 100 (98-107) mmol/L Carbon Dioxide 28 (22-30) mmol/L Anion Gap 9 (4-12) mmol/L BUN 8 (7-17) mg/dL Creatinine 0.71 (0.7-1.0) mg/dL Estim Creat Clear Calc 130 ml/min Estimated GFR > 60 (59 - ) Glucose 99 (65-110) mg/dL Calcium 9.3 (8.4-10.2) mg/dL Total Bilirubin 0.7 (0.2-1.3) mg/dL AST 27 (14-36) U/L ALT 29 (6-35) U/L Alkaline Phosphatase 73 (38-126) U/L Total Protein 8.0 (6.3-8.2) g/dL Albumin 4.1 (3.5-5.1) g/dL Lipase 50 (23-300) U/L Urine Color Yellow (Yellow) Urine Appearance Cloudy H (Clear) Urine pH 6.0 (5.0-9.0) Ur Specific Bostic 1.020 (1.001-1.035) Urine Protein Negative (Negative) mg/dL Urine Glucose (UA) Negative (Negative) mg/dL Urine Ketones Trace H (Negative) mg/dL Ur Blood (Man) Negative (Negative) Urine Nitrate Positive H (Negative) Urine Bilirubin Negative (Negative) Urine Urobilinogen 1.0 (<2.0) mg/dL Add Ur Microanalysis Reviewed Leukocyte Esterase Rfl Negative (Negative) DIPIKA/UL Urine RBC 0-2 (0-2) /hpf Urine WBC 21-50 H (0-3) /hpf Ur Squamous Epith Cells None seen (Few) /hpf Urine Bacteria 4+ /hpf Urine Casts 0-2 POC Urine HCG, Qual Negative (Negative) Urine Test Negative Imaging Data Attestation: I personally reviewed and interpreted this imaging study as follows: My impression: Impressions Abdomen/Pelvis CT 10/17/24 17:13 IMPRESSION: Normal appendix. Oblique positioning of the intrauterine device. Radiologist's impression: ITS Impressions Abdomen/Pelvis CT 10/17/24 17:13 IMPRESSION: Normal appendix. Oblique positioning of the intrauterine device. Discharge Plan Discharge Clinical Impression: UTI (urinary tract infection), Abdominal pain Patient Disposition: Home, Self-Care Condition: Stable Instructions: Antibiotic Form, Urinary Tract Infection in Women (DC) Additional Instructions: your CT scan is very reassuring, you have a urinary tract infection which will be treated with antibiotics. We will send you home with 7 days worth in addition to Zofran and Bentyl for any symptoms that you have. Follow-up with regular doctor, return with any new or worsening concerns at any time. Patient Language: Emirati Prescriptions: New dicyclomine 20 mg tablet 20 mg PO TID PRN (Reason: abdominal pain) Qty: 20 0RF cephalexin 500 mg capsule 500 mg PO Q12H 7 Days Qty: 14 0RF ondansetron 4 mg tablet,disintegrating 4 mg PO Q8H PRN (Reason: nausea and vomiting) Qty: 10 0RF No Action Mirena 21 mcg/24 hours (8 yrs) 52 mg Intrauterine Device 1 device INTRAUTERINE ONCE Rx Instructions: as a single dose ibuprofen 800 mg tablet 800 mg PO TID PRN (Reason: pain) Qty: 15 0RF cyclobenzaprine 10 mg tablet 10 mg PO TID PRN (Reason: muscle spasm) Qty: 15 0RF Follow-up/Referrals: PHYSICIAN,SURFACE GRINDING MACHINE HAND [Primary Care Provider] - Time of Disposition: 17:38
[2024-10-17] MEDS: ONDANSETRON INJ 4 MG/2 ML VIAL IV PUSH (15:07)
[2024-10-17] MEDS: LACTATED RINGERS 1,000 ML 999 ML IV CONT (15:07)
[2024-10-17] MEDS: KETOROLAC 15 MG/ML VIAL (*BKC) IV PUSH (15:07)
[2024-10-17 15:08] LABS: Basophils Percent Auto 0.6 % (0.2-1.2); Eosinophils Absolute Auto 0.1 K/mm3 (0-0.3); Eosinophils Percent Auto 1.5 % (0-4.4); Hematocrit 45.9 % (37.0-47.0); Hemoglobin 14.9 g/dL (12.0-15.0); Immature Granulocyte Absolute 0.02 K/mm3 (0.00-0.031); Immature Granulocyte Percent A 0.4 % (0-0.5); Lymphocytes Absolute Auto 1.51 K/mm3 (0.9-3.2); Lymphocytes Percent Auto 31.7 % (18.3-44.2); Mean Corpuscular HGB Conc 32.5 g/dl (32-36); Mean Corpuscular Hemoglobin 28.2 pg (26-34); Mean Corpuscular Volume 86.8 fl (80-100); Mean Platelet Volume 8.9 fl (7.4-10.4); Monocytes Absolute Auto 0.4 K/mm3 (0.1-0.6); Monocytes Percent Auto 8.4 % (2.6-8.5); Neutrophils Absolute Auto 2.7 K/mm3 (1.3-6.7); Neutrophils Percent Auto 57.4 % (45.5-73.1); Platelet Count Result 264 k/mm3 (150-375); Red Blood Count 5.29 M/mm3 (4.2-5.4); Red Cell Distribution Width 13.9 % (11.5-14.5); White Blood Count 4.8 K/mm3 (4.5-10.0)
--- OUTSIDE RECORDS SUMMARY | 2024-10-17 15:10 | XMS_ITS | Continuity of Care Document ---
Author Organization [facility] Address [address] [place] [address] Phone Care Team Providers Care Power Plant Technician Name Role Phone Kar Rubin MD Unavailable Unavailable Advance Directives Directive Yes / No Effective Date File Name No Information Encounters Encounter Description Practice Location Reason(s) For Visit Diagnoses Date Provider Providers Copied on Encounter [facility], [address] [place], [place], [id number], [place] tel:[phone] [facility] No Information Scottie Lakhani. [address] [place], [place], [id number], [place]. tel:[phone] Family History Family Member Type Diagnosis Age At Onset No Information Payers Payer name Insurance type Covered republican ID Authoriza tion(s) No Information Social History [...]
[2024-10-17 15:18] LABS: Alanine Aminotransferase 29 U/L (6-35); Albumin Level 4.1 g/dL (3.5-5.1); Alkaline Phosphatase 73 U/L (38-126); Anion Gap 9 mmol/L (4-12); Aspartate Amino Transferase 27 U/L (14-36); Bilirubin,Total 0.7 mg/dL (0.2-1.3); Blood Urea Nitrogen 8 mg/dL (7-17); Calcium 9.3 mg/dL (8.4-10.2); Carbon Dioxide 28 mmol/L (22-30); Chloride 100 mmol/L (98-107); Estimated CRCL calculation 130 ml/min; Estimated Glomerular Filt Rate > 60; Glucose 99 mg/dL (65-110); Lipase 50 U/L (23-300); Potassium 4.1 mmol/L (3.4-5.0); Sodium 137 mmol/L (137-145)
[2024-10-17 15:22] LABS: Add Urine Microscopic? YES; Appearance Urine Cloudy (Clear); Bacteria Urine 4+ /hpf; Bilirubin Urine Negative (Negative); Blood Urine Negative (Negative); Color Urine Yellow (Yellow); Glucose Urine UA Negative (Negative); Ketones Urine Trace mg/dL (Negative); Leukocyte Esterase Ur Negative LEU/UL (Negative); Need Manual Microscopic Reviewed; Nitrate Urine Positive (Negative); Non Pathogenic Casts 0-2; Protein Urine Negative (Negative); RBC Urine 0-2 /hpf (0-2); Squamous Epithelial Cell Urine None Seen /hpf (Few); WBC Urine 21-50 /hpf (0-3)
[2024-10-17 16:00] VITALS: BP 108/70; PULSE 76; RESP 18; O2SAT 100
[2024-10-17 16:01] LABS: Pregnancy On Board Control Positive; Urine Pregnancy Test Negative
[2024-10-17 16:11] LABS: BEDSIDEPREGUCG Negative (Negative)
[2024-10-17 17:15] VITALS: BP 119/71; PULSE 71; RESP 14; O2SAT 100
[2024-10-17 17:45] VITALS: BP 117/73; PULSE 70; RESP 16; O2SAT 100
[2024-10-17] MEDS: CEPHALEXIN 500 MG CAPSULE PO (17:45)
== END 2024-10-17 17:51 | disposition home or self-care (01) ==
PROVIDERS: Emergency Provider Student in an Organized Health Care Education/Training Program
DX: N39.0 Urinary tract infection, site not specified (principal); F17.210 Nicotine dependence, cigarettes, uncomplicated
CPT/HCPCS: 36415; 74177; 80053; 81001; 81025; 83690; 85025; 87086; 87186; 96361; 96374; 96375; 99284; A9270; J1885; J2405; J7120; Q9967

== ENCOUNTER 2025-05-03 13:08 | Emergency (ER) | payer OTHER, SELFPAY ==
--- OUTSIDE RECORDS SUMMARY | 2019-05-19 19:00 | XMS_ITS | Continuity of Care Document ---
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 [address] [place], [place], [id number], [place]. tel:[phone] Family History Family Member Type Diagnosis Age At Onset No Information Payers Payer name Insurance type Covered constitution party ID Authoriza tion(s) No Information Social History Type Description Quantity Date Captured Comments Sex Female Smoking Status No Information Chief Complaint And Reason For Visit No Information Plan Of Treatment Date Type Action Status No Information History Of Present Illness Encounter Date Complaint History Of Prese nt Illness No Information Instructions Date Instruction Additional Infor mation No Information Assessments Type Assessment Date No Information
[2025-05-03 13:12] VITALS: BP 134/93; PULSE 84; RESP 20; TEMP 37.1; O2SAT 100
--- NOTE | 2025-05-03 13:22 | ED_ITS ---
HPI - Eye Problem General Chief complaint: Eye Problems Stated complaint: Eye Problem Related Data Home Medications ?Medication ?Instructions ?Recorded ?Confirmed ?Last Taken ?Type levonorgestrel (Mirena) 1 device intrauterine ONCE 0 12/18/23 12/18/23 Unknown History Allergies Allergy/AdvReac Type Severity Reaction Status Date / Time cat dander Allergy Intermediate Dyspnea / Verified 12/18/23 09:13 SOB [facility] Past Medical History Medical History (Updated 10/18/24 @ 00:00 by Kathe Chapman) Infection in bloodstream Anxiety and depression UTI (urinary tract infection) Surgical History Surgical History History of cosmetic plastic surgery facial due to dog bit History of plastic surgery Previous section Family History Family History Other Asthma Diabetes mellitus Social History Social History Smoking packs per day: 0.5 Smoking cigarettes per day: 10.0 Years smoked: 5 Smoking pack-years: 2.50 Smoking status: Current every day smoker Tobacco type: cigarettes Alcohol intake: current Alcohol use details: occasional Substance use: never Living arrangements: with family Occupation/Education: occupation Gender identity (if verbalized by the patient): Female Course Vital Signs Vital signs: Vital Signs Temperature 98.7 F 05/03/25 13:12 Pulse Rate 84 05/03/25 13:12 Respiratory Rate 20 05/03/25 13:12 Blood Pressure 134/93 H 05/03/25 13:12 Pulse Oximetry 100 05/03/25 13:12 Oxygen Delivery Room Air 05/03/25 13:12 Temperature 98.7 F 05/03/25 13:12 Pulse Rate 84 05/03/25 13:12 Respiratory Rate 20 05/03/25 13:12 Blood Pressure 134/93 H 05/03/25 13:12 Pulse Oximetry 100 05/03/25 13:12 Oxygen Delivery Room Air 05/03/25 13:12 Discharge Plan Discharge Patient Language: Chadian Prescriptions: No Action Mirena 21 mcg/24 hours (8 yrs) 52 mg Intrauterine Device 1 device INTRAUTERINE ONCE Rx Instructions: as a single dose ibuprofen 800 mg tablet 800 mg PO TID PRN (Reason: pain) Qty: 15 0RF cyclobenzaprine 10 mg tablet 10 mg PO TID PRN (Reason: muscle spasm) Qty: 15 0RF dicyclomine 20 mg tablet 20 mg PO TID PRN (Reason: abdominal pain) Qty: 20 0RF cephalexin 500 mg capsule 500 mg PO Q12H 7 Days Qty: 14 0RF ondansetron 4 mg tablet,disintegrating 4 mg PO Q8H PRN (Reason: nausea and vomiting) Qty: 10 0RF Follow-up/Referrals: PHYSICIAN,BOMB LOADER [Primary Care Provider, Internal Medicine]
--- NOTE | 2025-05-03 13:41 | ED_ITS ---
HPI - General Adult General Chief complaint: Eye Problems Stated complaint: Eye Problem Time Seen by Provider: 05/03/25 13:35 Source: patient Mode of arrival: ambulatory Limitations: no limitations History of Present Illness HPI narrative: 29-year-old female presents with concern for her right eye watering, reports she is not able to close the eye fully when she blinks. She reports that symptoms started today. She denies any difficulty swallowing, speaking. She denies weakness in any extremity. She reports mild runny nose, otherwise denies ill symptoms. Denies fever, aches, chills, sweats. Denies headache. She denies vision changes. complaint: Watering eye Related Data Home Medications ?Medication ?Instructions ?Recorded ?Confirmed ?Last Taken ?Type levonorgestrel (Mirena) 1 device intrauterine ONCE 0 12/18/23 12/18/23 Unknown History Allergies Allergy/AdvReac Type Severity Reaction Status Date / Time cat dander Allergy Intermediate Dyspnea / Verified 12/18/23 09:13 SOB Review of Systems Review of Systems: CONSTITUTIONAL: Denies malaise, chills, sweats, or fever. EYES: Denies visual changes, redness, or discharge. Reports watery right eye ENT: Denies rhinorrhea, congestion, sinus pain, otalgia or sore throat. CARDIOVASCULAR: Denies chest pain, palpitations, or edema. RESPIRATORY: Denies cough or dyspnea. SKIN: Denies rash or itching. MUSCULOSKELETAL: Denies joint pain or myalgia. NEUROLOGIC: Denies numbness in any extremity, weakness in any extremity, or headache. PSYCHIATRIC: Denies anxiety or depression. All systems reviewed & are unremarkable except as noted in HPI and below [facility] Past Medical History Medical History (Updated 05/03/25 @ 13:43 by Theresa Bush NP) Infection in bloodstream Anxiety and depression UTI (urinary tract infection) Surgical History Surgical History History of cosmetic plastic surgery facial due to dog bit History of plastic surgery Previous section Family History Family History Other Asthma Diabetes mellitus Social History Social History Smoking packs per day: 0.5 Smoking cigarettes per day: 10.0 Years smoked: 5 Smoking pack-years: 2.50 Smoking status: Current every day smoker Tobacco type: cigarettes Alcohol intake: current Alcohol use details: occasional Substance use: never Living arrangements: with family Occupation/Education: occupation Gender identity (if verbalized by the patient): Female Comments At time of signature, agree with nursing past medical, surgical, social and family history. There is no relevant family history pertinent to the presenting complaint Exam Narrative: GENERAL: Well-appearing, well-nourished, and in no acute distress. HEAD: Normocephalic, atraumatic. EYES: PERRLA, sclera and conjunctiva clear, and EOMI. No nystagmus. Right eye not fully closing voluntarily and watery drainage noted ENT: Nares clear, turbinates pink, no rhinorrhea or epistaxis. Mucous membranes moist. TM pearly lopez with sharp light reflex bilaterally; no tragal tenderness. Oropharynx without erythema or lesions. Tonsils not enlarged and without exudate. NECK: Supple. CHEST: No respiratory distress. Clear to auscultation. No bony deformities, no asymmetry. Speaks in full sentences. HEART: Regular rate and rhythm. No murmur heard. Normal peripheral pulses. EXTREMITIES: Normal range of motion. No edema. Normal strength and sensation. SKIN: Warm, dry, no visible rash. NEURO: Alert and oriented x3. No focal deficits. Cranial nerves II, III, IV, V, , VIII, IX, X, XI through XII grossly intact, Facial nerve XII effected with asymmetrical smile, eyelid function and eyebrow raise. PSYCH: Normal mood and affect Course Course Emergency Course: Patient is aware of diagnosis, understands and agrees to treatment plan. Anticipatory guidance given. Patient agrees to follow-up as directed and is aware of reasons to seek care at the emergency department. Portions of this record may have been created with voice recognition software Level of Care: Express Care Visit Vital Signs Vital signs: Vital Signs Temperature 98.7 F 05/03/25 13:12 Pulse Rate 84 05/03/25 13:12 Respiratory Rate 20 05/03/25 13:12 Blood Pressure 134/93 H 05/03/25 13:12 Pulse Oximetry 100 05/03/25 13:12 Oxygen Delivery Room Air 05/03/25 13:12 Temperature 98.7 F 05/03/25 13:12 Pulse Rate 84 05/03/25 13:12 Respiratory Rate 20 05/03/25 13:12 Blood Pressure 134/93 H 05/03/25 13:12 Pulse Oximetry 100 05/03/25 13:12 Oxygen Delivery Room Air 05/03/25 13:12 Reviewed. Medical Decision Making MDM Narrative Medical decision making narrative: The patient was evaluated by myself in the [facility] care. History is obtained from patient who is an independent historian and physical exam was performed.? Available medical records were reviewed at this time. ? Exam findings show no acute concerns or changes; patient is non-toxic appearing and is in no distress. Patient is appropriate for outpatient treatment and follow-up. ? I have evaluated and discussed social determinants of health with the patient that could potentially impact subsequent diagnosis and treatment plans. ? Differential diagnosis and treatment plan were discussed with the patient. Patient agrees with discussion and after shared medical decision making agrees with plan of care. All questions were answered to the patient's satisfaction. Vital Signs Vital Signs: Vital Signs Temperature 98.7 F 05/03/25 13:12 Pulse Rate 84 05/03/25 13:12 Respiratory Rate 20 05/03/25 13:12 Blood Pressure 134/93 H 05/03/25 13:12 Pulse Oximetry 100 05/03/25 13:12 Oxygen Delivery Room Air 05/03/25 13:12 Temperature 98.7 F 05/03/25 13:12 Pulse Rate 84 05/03/25 13:12 Respiratory Rate 20 05/03/25 13:12 Blood Pressure 134/93 H 05/03/25 13:12 Pulse Oximetry 100 05/03/25 13:12 Oxygen Delivery Room Air 05/03/25 13:12 Critical Care Time Critical Care Time Critical Care Time: No Discharge Plan Discharge Clinical Impression: Ballesteros's palsy Patient Disposition: Home Condition: Stable Instructions: Ballesteros Palsy (ED) Additional Instructions: 1) Please follow-up with your primary care doctor in the next 1-2 days. 2) If you have any worsening of symptoms or any other urgent concerns please go to the ER. 3) Please take medications as prescribed and use moisturizing eye gel in your right eye. 4) Please read and follow information included in discharge instructions. Patient Language: Cuban Prescriptions: New prednisone 10 mg tablet 10 mg PO DAILY Qty: 42 0RF Rx Instructions: 6 tabs days 1-2, 5 tabs days 3-4, 4 tabs days 5-6, 3 tabs days 7-8, 2 tabs days 9-10, 1 tab days 11-12 No Action Mirena 21 mcg/24 hours (8 yrs) 52 mg Intrauterine Device 1 device INTRAUTERINE ONCE Rx Instructions: as a single dose Follow-up/Referrals: PHYSICIAN,[facility] [employer] [facility] [Primary Care Provider, Internal Medicine] Danial Angeles MD [Physician, Family Practice] Referral Note: Needs PCP, bells palsy diagnosis today Time of Disposition: 13:44
== END 2025-05-03 13:49 | disposition home or self-care (01) ==
PROVIDERS: Emergency Provider Nurse Practitioner
DX: G51.0 Bell's palsy (principal); F17.210 Nicotine dependence, cigarettes, uncomplicated
CPT/HCPCS: 99213; G0463